=== PATIENT | female | born 1985 | race Hispanic/Latino ===

== ENCOUNTER 2017-02-14 20:14 | Observation (INO) | payer MEDICAID, OTHER ==
[2017-02-14 20:14] VITALS: BMI 33.5
[2017-02-14 20:20] VITALS: BP 139/62; PULSE 92; RESP 20; TEMP 98.1; O2SAT 100
[2017-02-14] MEDS ORDERED: Sodium Chloride 0.9% 1,000 ML IV STA (23:15)
[2017-02-15 00:18] LABS: BASO # 0.1 K/uL (0.0-0.2); BASO % 1.2 % (0.0-2.0); EOS # 0.2 K/uL (0.0-0.7); HEMATOCRIT 40.6 % (34.0-47.0); LYMPH # 3.3 K/uL (1.0-4.3); LYMPH % 37.3 % (20.0-40.0); MEAN CELL VOLUME 93.9 fl (81.0-99.0); MEAN CORPUSCULAR HEMOGLOBIN 31.1 pg (27.0-31.0); MEAN CORPUSCULAR HGB CONC 33.1 g/dL (33.0-37.0); MEAN PLATELET VOLUME 9.5 fl (7.2-11.7); MONO # 0.7 K/uL (0.0-0.8); MONO % 8.1 % (0.0-10.0); NEUT # 4.5 K/uL (1.8-7.0); NEUT % 51.4 % (50.0-75.0); NRBC % 0.1 % (0.0-0.0); RED CELL DISTRIBUTION WIDTH 13.4 % (11.5-14.5); WHITE BLOOD COUNT 8.8 K/uL (4.8-10.8)
[2017-02-15 00:25] LABS: RBC URINE 10 /hpf (0-3); URINE BILIRUBIN NEGATIVE (NEGATIVE); URINE BLOOD NEGATIVE (NEGATIVE); URINE COLOR YELLOW (YELLOW); URINE GLUCOSE (UA) NEG (Normal); URINE KETONE TRACE mg/dL (NEGATIVE); URINE LEUKOCYTE ESTERASE NEG Leu/uL (Negative); URINE PROTEIN NEGATIVE (NEGATIVE); URINE UROBILINOGEN 0.2-1.0 mg/dL (0.2-1.0); WBC CLUMPS MANY /hpf
[2017-02-15 00:27] LABS: ALB/GLOB RATIO 1.3 (1.0-2.1); ALKALINE PHOSPHATASE 74 U/L (38-126); ALT/SGPT 22 U/L (9-52); AST/SGOT 21 U/L (14-36); BILIRUBIN,TOTAL 0.3 mg/dl (0.2-1.3); BLOOD UREA NITROGEN 19 mg/dl (7-17); CALCIUM 9.7 mg/dL (8.4-10.2); CARBON DIOXIDE 26 mmol/L (22-30); CHLORIDE 104 mmol/L (98-107); GFR AFRICAN-AMERICAN > 60; GLUCOSE,RANDOM 86 mg/dL (65-105); POTASSIUM 4.1 MMOL/L (3.6-5.0); SODIUM 145 mmol/l (132-148); TOTAL PROTEIN 7.2 G/DL (6.3-8.2)
[2017-02-15] MEDS ORDERED: Iohexol 240 (50 ml) ONE (02:07)
[2017-02-15] MEDS ORDERED: Iohexol 240 (50 ml) PO ONE (02:12)
[2017-02-15] MEDS ORDERED: Oxycodone/Acetaminophen 5/325 mg Tab PO ONE (02:16)
--- NOTE | 2017-02-15 02:18 | ED PDOC ---
HPI: Abdomen Time Seen by Provider: 02/14/17 23:00 Chief Complaint (Nursing): Abdominal Pain Chief Complaint (Provider): abdominal pain History Per: Patient History/Exam Limitations: no limitations Onset/Duration Of Symptoms: Days (1 week) Current Symptoms Are (Timing): Still Present Location Of Pain/Discomfort: RLQ, LLQ, Suprapubic Additional History Per: Patient Additional Complaint(s): 31 y/o female history of PCOS presents with lower abdominal pain x 1 week. Patient states she is been medicating with Tylenol without improvement of symptoms. Patient describes pain as something "tearing" inside of her. Denies fever, nausea/vomiting, chest pain, shortness of breath, palpitations, changes in bowel movements, vaginal bleeding/discharge, dysuria/hematuria. Past Medical History Reviewed: Historical Data, Nursing Documentation, Vital Signs Vital Signs: Last Vital Signs Temp 98.1 F 02/14/17 20:16 Pulse 92 H 02/14/17 20:16 Resp 20 02/14/17 20:16 BP 139/62 02/14/17 20:16 Pulse Ox 100 02/15/17 05:19 - Medical History PMH: Anemia - Surgical History Surgical History: Cholecystectomy Other surgeries: myometcomy - Family History Family History: States: Unknown Family Hx - Immunization History Hx Tetanus Toxoid Vaccination: No Hx Influenza Vaccination: Yes Hx Pneumococcal Vaccination: Yes - Home Medications Home Medications: Ambulatory Orders Medication Instructions Recorded Multivit/Folic Acid/I 1 tab PO DAILY 10/17/16 [ Plus] - Allergies Allergies/Adverse Reactions: Allergies Allergy/AdvReac Type Severity Reaction Status Date / Time peanut Allergy Severe ANAPHYLAXIS Verified 01/29/17 23:44 ibuprofen Allergy Intermediate ANAPHYLAXIS Verified 01/29/17 23:44 naproxen sodium [From Aleve] Allergy Verified 01/29/17 23:44 NSAIDS (Non-Steroidal AdvReac Intermediate NAUSEA Verified 01/29/17 23:44 Anti-Inflamma tussfed Allergy Mild RASH Uncoded 01/29/17 23:44 Review of Systems ROS Statement: Except As Marked, All Systems Reviewed And Found Negative Gastrointestinal: Positive for: Abdominal Pain Physical Exam - Reviewed Nursing Documentation Reviewed: Yes Vital Signs Reviewed: Yes - Physical Exam Appears: Positive for: Well, Non-toxic, Uncomfortable Head Exam: Positive for: ATRAUMATIC, NORMAL INSPECTION, NORMOCEPHALIC Skin: Positive for: Normal Color Eye Exam: Positive for: Normal appearance ENT: Positive for: Normal ENT Inspection Cardiovascular/Chest: Positive for: Regular Rate, Rhythm Respiratory: Positive for: Normal Breath Sounds Gastrointestinal/Abdominal: Positive for: Bowel Sounds, Soft, Tenderness ( diffuse; worse lower) Back: Positive for: Normal Inspection Extremity: Positive for: Normal ROM Neurologic/Psych: Positive for: Alert, Oriented - Laboratory Results Result Diagrams: 02/14/17 00:13 02/14/17 00:13 - ECG O2 Sat by Pulse Oximetry: 100 - Progress ED Course And Treament: labs, TV u/s, IV morphine 2mg, IV fluids ED OBSERVATION Discharge: Yes Date of observation admission: 02/14/17 Time of observation admission: 23:15 - Observation admission statement Patient is being placed in observation because:: abdominal pain - Goals of Observation Goals of observation are:: obtain labs, u/s - Progress Note Progress Note: 02/15/17 2:00 Patient states still with pain; patient was advised will need to do CT abd/ pelvis for further eval. Percocet PO ordered. 02/15/17 05:17 EXAM: CT Abdomen and Pelvis With Intravenous Contrast CLINICAL HISTORY: 31 years old, female; Pain; Abdominal pain; Localized; Lower; Prior surgery; Surgery date: 6+ months; Surgery type: Myectomy; Additional info: Lower abd pain TECHNIQUE: Axial computed tomography images of the abdomen and pelvis with intravenous contrast. This CT exam was performed using one or more of the following dose reduction techniques : automated exposure control, adjustment of the mA and/or kV according to patient size, and/ or use of iterative reconstruction technique. CONTRAST: 95 mL of [id number] administered intravenously. EXAM DATE/TIME: 02/15/2017 2:12 AM COMPARISON: No relevant prior studies available. FINDINGS: The liver is normal. The spleen is normal. The pancreas is normal. No gallstones. No hydronephrosis or perinephric stranding. The right colon is distended with stool consistent with constipation. Colonic diverticulosis. A normal appendix is identified on axial images 128 through 141, coronal images 50-60. It measures 6 mm in diameter which is the upper limits of normal. The majority of the lumen is filled with air without evidence of wall thickening, wall hyperemia, or periappendiceal stranding. Multiple ovarian follicles are noted bilaterally. There is a small amount of free fluid in the deep right pelvis. Endometrial fluid is noted within the uterus. IMPRESSION: Mild right-sided constipation. 02/15/17 05:20 Patient educated on findings, multiple Tramadol/Percoc[place]'s [place]. Patient educated on this, advised no rx will be provided. Patient advised to follow up PMD/[employer] for pain management referral. High fiber diet. Return to ED for worsening/concerning symptoms. Disposition - Clinical Impression Clinical Impression: Lower abdominal pain, Constipation - Patient ED Disposition Is Patient to be Admitted: No Counseled Patient/Family Regarding: Studies Performed, Diagnosis, Need For Followup - Disposition Disposition: Routine/Home Disposition Time: 05:19 Condition: IMPROVED
[2017-02-15] MEDS ORDERED: Iohexol 300 100 ML IJ ONE (03:34)
[2017-02-15] MEDS ORDERED: Sodium Chloride 0.9% 50 ML IV ONE (03:34)
--- NOTE | 2017-02-15 05:10 | CT ---
EXAM: CT Abdomen and Pelvis With Intravenous Contrast CLINICAL HISTORY: 31 years old, female; Pain; Abdominal pain; Localized; Lower; Prior surgery; Surgery date: 6+ months; Surgery type: Myectomy; Additional info: Lower abd pain TECHNIQUE: Axial computed tomography images of the abdomen and pelvis with intravenous contrast. This CT exam was performed using one or more of the following dose reduction techniques: automated exposure control, adjustment of the mA and/or kV according to patient size, and/or use of iterative reconstruction technique. CONTRAST: 95 mL of [id number] administered intravenously. EXAM DATE/TIME: 02/15/2017 2:12 AM COMPARISON: No relevant prior studies available. FINDINGS: The liver is normal. The spleen is normal. The pancreas is normal. No gallstones. No hydronephrosis or perinephric stranding. The right colon is distended with stool consistent with constipation. Colonic diverticulosis. A normal appendix is identified on axial images 128 through 141, coronal images 50-60. It measures 6 mm in diameter which is the upper limits of normal. The majority of the lumen is filled with air without evidence of wall thickening, wall hyperemia, or periappendiceal stranding. Multiple ovarian follicles are noted bilaterally. There is a small amount of free fluid in the deep right pelvis. Endometrial fluid is noted within the uterus. IMPRESSION: Mild right-sided constipation.
--- NOTE | 2017-02-15 09:00 | US ---
HISTORY: Pelvic pain COMPARISON: None available. TECHNIQUE: Transvaginal pelvic ultrasound was performed. FINDINGS: UTERUS: Measures 7.9 x 3.4 x 5.4 cm. Anteverted, normal in size and appearance. There is a 0.8 x 0.9 x 0.7 cm intramural fibroid in the anterior wall of the lower uterine segment. . ENDOMETRIUM: Measures 8 mm in diameter. Unremarkable. CERVIX: No cervical abnormality identified. RIGHT OVARY: Measures 2.5 x 2.7 x 2.0 cm. No solid mass. Normal flow. LEFT OVARY: Measures 3.1 x 1.8 x 2.8 cm. No solid mass. Normal flow. FREE FLUID: No significant free fluid noted. OTHER FINDINGS: None. IMPRESSION: Solitary subcentimeter intramural fibroid in the anterior wall of the lower uterine segment. No adnexal mass or ovarian cyst. No evidence for torsion.
== END 2017-02-15 05:30 | disposition home or self-care (01) ==
LOC: H.ER 20:14 → H.EROBSV 23:15
PROVIDERS: ADMIT Emergency Medicine; ATTEND Emergency Medicine
DX: K59.00 Constipation, unspecified (principal); E28.2 Polycystic ovarian syndrome; Z88.6 Allergy status to analgesic agent; Z91.010 Allergy to peanuts

== ENCOUNTER 2017-03-12 20:52 | Emergency (ER) | payer MEDICAID, OTHER ==
[2017-03-12 20:52] VITALS: BMI 33.5
[2017-03-12 21:54] VITALS: BP 110/65; PULSE 82; RESP 16; TEMP 98; O2SAT 100
--- NOTE | 2017-03-12 22:37 | ED PDOC ---
Lower Extremity Pain/Injury Time Seen by Provider: 03/12/17 22:20 Chief Complaint (Nursing): Lower Extremity Problem/Injury Chief Complaint (Provider): ankle pain History Per: Patient History/Exam Limitations: no limitations Onset/Duration Of Symptoms: Days Current Symptoms Are (Timing): Still Present Additional History Per: Patient Additional Complaint(s): 31 y/o female history of PCOS presents with swelling to both ankles x 1 week. Patient notes doing excessive walking, has had previous ligament injury to right ankle, notes pain worse on that ankle. She notes pain worse with weight bearing. Denies fever, known injury, leg pain/swelling/redness. Past Medical History Reviewed: Historical Data, Nursing Documentation, Vital Signs Vital Signs: Last Vital Signs Temp 98.0 F 03/12/17 21:51 Pulse 82 03/12/17 21:51 Resp 16 03/12/17 21:51 BP 110/65 03/12/17 21:51 Pulse Ox 100 03/12/17 21:51 - Medical History PMH: Anemia - Surgical History Surgical History: Cholecystectomy - Family History Family History: States: Unknown Family Hx - Immunization History Hx Tetanus Toxoid Vaccination: No Hx Influenza Vaccination: Yes Hx Pneumococcal Vaccination: Yes - Home Medications Home Medications: Ambulatory Orders Medication Instructions Recorded No Known Home Med 02/22/17 - Allergies Allergies/Adverse Reactions: Allergies Allergy/AdvReac Type Severity Reaction Status Date / Time peanut Allergy Severe ANAPHYLAXIS Verified 02/19/17 03:08 ibuprofen Allergy Intermediate ANAPHYLAXIS Verified 02/19/17 03:08 naproxen sodium [From Aleve] Allergy ITCHING Verified 03/12/17 21:51 NSAIDS (Non-Steroidal AdvReac Intermediate NAUSEA Verified 02/19/17 03:08 Anti-Inflamma tussfed Allergy Mild RASH Uncoded 02/19/17 03:08 Review of Systems ROS Statement: Except As Marked, All Systems Reviewed And Found Negative Musculoskeletal: Positive for: Foot Pain (ankle) Physical Exam - Reviewed Nursing Documentation Reviewed: Yes Vital Signs Reviewed: Yes - Physical Exam Appears: Positive for: Well, Non-toxic, No Acute Distress Pulses-Dorsalis Pedis (L): 2+ Pulses-Dorsalis Pedis (R): 2+ Pulses-Post. Tibialis (L): 2+ Pulses-Post. Tibialis (R): 2+ Extremity: Positive for: Normal ROM, Tenderness (tender to palpate right lateral malleolus with + swelling; left lateral malleolus with mild tenderness to palpation, no obvious swelling. No erythema, deformity b/l. FROM b/l. Distal NV, motor intact b/l) Neurologic/Psych: Positive for: Alert, Oriented. Negative for: Motor/Sensory Deficits - ECG O2 Sat by Pulse Oximetry: 100 - Other Rad ankle X-Ray: Viewed By Me X-Ray Interpretation: no acute findings - Progress ED Course And Treament: xray Patient right ankle wrapped in FREDDY, educated on RICE. tyelnol PRN fever. Follow up podiatry. Return to ED for worsening/concerning symptoms. Disposition - Clinical Impression Clinical Impression: Ankle pain - Patient ED Disposition Is Patient to be Admitted: No Counseled Patient/Family Regarding: Studies Performed, Diagnosis, Need For Followup - Disposition Referrals: Podiatry Clinic [Outside] Disposition: Routine/Home Disposition Time: 00:19 Condition: STABLE Instructions: Arthralgia (ED), RICE Therapy (ED)
--- NOTE | 2017-03-13 14:05 | RAD ---
PROCEDURE: Right Ankle Radiographs. HISTORY: lateral ankle pain/swelling COMPARISON: None FINDINGS: BONES: No evidence of acute fracture. There is calcaneal spur JOINTS: Normal. No osteoarthritis. Ankle mortise maintained. Talar dome intact SOFT TISSUES: [id number] soft tissue swelling. OTHER FINDINGS: None. IMPRESSION: No evidence of acute fracture or dislocation.
== END 2017-03-13 00:22 | disposition home or self-care (01) ==
LOC: H.ER 20:52
DX: M25.571 Pain in right ankle and joints of right foot (principal); M25.572 Pain in left ankle and joints of left foot

== ENCOUNTER 2017-04-12 02:21 | Emergency (ER) | payer MEDICAID, OTHER ==
[2017-04-12 02:22] VITALS: BMI 33.5
[2017-04-12 03:02] VITALS: BP 129/73; PULSE 89; RESP 16; TEMP 98.7; O2SAT 99
[2017-04-12] MEDS ORDERED: Oxycodone/Acetaminophen 5/325 mg Tab PO ONE (03:15)
[2017-04-12 03:28] LABS: HEMATOCRIT 36.1 % (34.0-47.0); MEAN CELL VOLUME 93.3 fl (81.0-99.0); MEAN CORPUSCULAR HEMOGLOBIN 31.1 pg (27.0-31.0); MEAN CORPUSCULAR HGB CONC 33.3 g/dL (33.0-37.0); RED CELL DISTRIBUTION WIDTH 13.9 % (11.5-14.5); WHITE BLOOD COUNT 6.7 K/uL (4.8-10.8)
[2017-04-12] MEDS ORDERED: Oxycodone/Acetaminophen 5/325 mg Tab ONE (03:38)
--- NOTE | 2017-04-12 04:25 | ED PDOC ---
HPI: Female Pain Time Seen by Provider: 04/12/17 02:50 Chief Complaint (Nursing): Abdominal Pain Chief Complaint (Provider): vaginal bleeding History Per: Patient History/Exam Limitations: no limitations Onset/Duration Of Symptoms: Days (2 weeks ) Current Symptoms Are (Timing): Still Present Additional Complaint(s): 31yo female with PMHx including dysfunctional uterine bleeding and chronic abdominal pain presents to the ED with c/o vaginal bleeding x 2 weeks with large clots and lower abdominal pain. Of note, patient has several ED visits for similar with extensive workup recently at neighboring ED with negative results. Patient states she has appointment with PCP tomorrow. Abnormal Vaginal Bleeding: Yes Past Medical History Reviewed: Historical Data, Nursing Documentation, Vital Signs Vital Signs: Last Vital Signs Temp 98.7 F 04/12/17 02:59 Pulse 89 04/12/17 02:59 Resp 16 04/12/17 02:59 BP 129/73 04/12/17 02:59 Pulse Ox 99 04/12/17 02:59 - Medical History PMH: Anemia, Asthma, Chronic Pain (chronic abdominal pain ) Other PMH: dysfunctional uterine bleeding - Surgical History Surgical History: Cholecystectomy - Family History Family History: States: No Known Family Hx - Immunization History Hx Tetanus Toxoid Vaccination: No Hx Influenza Vaccination: Yes Hx Pneumococcal Vaccination: Yes - Home Medications Home Medications: Ambulatory Orders Medication Instructions Recorded oxyCODONE/Acetaminophen [Percocet 1 tab PO TID #10 tab 04/09/17 5/325 mg Tab] - Allergies Allergies/Adverse Reactions: Allergies Allergy/AdvReac Type Severity Reaction Status Date / Time peanut Allergy Severe ANAPHYLAXIS Verified 04/08/17 23:26 ibuprofen Allergy Intermediate ANAPHYLAXIS Verified 04/08/17 23:26 naproxen sodium [From Aleve] Allergy ITCHING Verified 04/08/17 23:26 NSAIDS (Non-Steroidal AdvReac Intermediate NAUSEA Verified 04/08/17 23:26 Anti-Inflamma tussfed Allergy Mild RASH Uncoded 04/08/17 23:26 Review of Systems ROS Statement: Except As Marked, All Systems Reviewed And Found Negative Gastrointestinal: Positive for: Abdominal Pain (lower ) Genitourinary Female: Positive for: Vaginal Bleeding Physical Exam - Reviewed Nursing Documentation Reviewed: Yes Vital Signs Reviewed: Yes - Physical Exam Appears: Positive for: Well, No Acute Distress Head Exam: Positive for: ATRAUMATIC, NORMAL INSPECTION, NORMOCEPHALIC Skin: Positive for: Normal Color, Warm, Dry Eye Exam: Positive for: Normal appearance, EOMI, PERRL ENT: Positive for: Normal ENT Inspection Neck: Positive for: Normal, Painless ROM, Supple Cardiovascular/Chest: Positive for: Regular Rate, Rhythm. Negative for: Murmur , Tachycardia Respiratory: Positive for: Normal Breath Sounds. Negative for: Wheezing, Respiratory Distress Gastrointestinal/Abdominal: Positive for: Soft, Tenderness (mild suprapubic ) Back: Positive for: Normal Inspection. Negative for: L CVA Tenderness, R CVA Tenderness Extremity: Positive for: Normal ROM. Negative for: Deformity, Swelling Neurologic/Psych: Positive for: Alert, Oriented - Laboratory Results Result Diagrams: 04/12/17 03:20 - ECG O2 Sat by Pulse Oximetry: 99 Pulse Ox Interpretation: Normal (RA) Medical Decision Making Medical Decision Makin: Impression: chronic abdominal pain, dysfunctional uterine bleeding Plan: CBC Percocet 1 tab PO reassess 0422: CBC shows no change in hemoglobin from prior visit. [place] [employer] searched and patient has extensive prescriptions for narcotics. Will d/c for outpatient f/u w / PCP and pain management. Return precautions given. Scribe Attestation: Documented by Guillermo Solano acting as a scribe for Elfego Pate MD. Provider Scribe Attestation: All medical record entries made by the Scribe were at my direction and personally dictated by me. I have reviewed the chart and agree that the record accurately reflects my personal performance of the history, physical exam, medical decision making, and the department course for this patient. I have also personally directed, reviewed, and agree with the discharge instructions and disposition. Disposition - Clinical Impression Clinical Impression: Vaginal bleeding - Patient ED Disposition Is Patient to be Admitted: No - Disposition Referrals: Christiano Choi MD [Primary Care Provider] - Disposition: Routine/Home Disposition Time: 04:22 Condition: STABLE Instructions: Dysfunctional Uterine Bleeding (ED)
== END 2017-04-12 04:46 | disposition home or self-care (01) ==
LOC: H.ER 02:21
DX: N93.8 Other specified abnormal uterine and vaginal bleeding (principal); G89.29 Other chronic pain; R10.9 Unspecified abdominal pain; J45.909 Unspecified asthma, uncomplicated

== ENCOUNTER 2017-04-19 00:37 | Emergency (ER) | payer MEDICAID ==
[2017-04-19 00:37] VITALS: BMI 33.5
[2017-04-19 01:07] VITALS: BP 120/71; PULSE 75; RESP 17; TEMP 98.1; O2SAT 98
--- NOTE | 2017-04-19 02:27 | ED PDOC ---
HPI: Back Time Seen by Provider: 04/19/17 00:45 Chief Complaint (Nursing): Back Pain Chief Complaint (Provider): Back Pain History Per: Patient History/Exam Limitations: no limitations Current Symptoms Are (Timing): Still Present Quality Of Discomfort: "Pain" Additional Complaint(s): 31 year old female presents to ED with complaints of lower back pain. Patient is a chronic drug abuser, has multiple prescriptions for opiates as see on [place]MP. Notes that pain radiates to legs bilaterally. States that the pain is exacerbated by walking and relieved with rest. (-) fever, chills, dysuria, or numbness/tingling. PCP: Lam Garcia - Risk Factors AAA Risk Factors: Neg: Older Than 49 Years Of Age Past Medical History Reviewed: Historical Data, Nursing Documentation, Vital Signs Vital Signs: Last Vital Signs Temp 98.1 F 04/19/17 01:04 Pulse 75 04/19/17 01:04 Resp 17 04/19/17 01:04 BP 120/71 04/19/17 01:04 Pulse Ox 98 04/19/17 01:04 - Medical History PMH: Anemia, Asthma, Chronic Pain (chronic abdominal pain ) - Surgical History Surgical History: Cholecystectomy - Family History Family History: States: Unknown Family Hx - Social History Drugs: Opiates, Prescription medications - Immunization History Hx Tetanus Toxoid Vaccination: No Hx Influenza Vaccination: Yes Hx Pneumococcal Vaccination: Yes - Home Medications Home Medications: Ambulatory Orders Medication Instructions Recorded oxyCODONE/Acetaminophen [Percocet 1 tab PO TID #10 tab 04/09/17 5/325 mg Tab] - Allergies Allergies/Adverse Reactions: Allergies Allergy/AdvReac Type Severity Reaction Status Date / Time peanut Allergy Severe ANAPHYLAXIS Verified 04/08/17 23:26 ibuprofen Allergy Intermediate ANAPHYLAXIS Verified 04/08/17 23:26 naproxen sodium [From Aleve] Allergy ITCHING Verified 04/08/17 23:26 NSAIDS (Non-Steroidal AdvReac Intermediate NAUSEA Verified 04/08/17 23:26 Anti-Inflamma tussfed Allergy Mild RASH Uncoded 04/08/17 23:26 Review of Systems ROS Statement: Except As Marked, All Systems Reviewed And Found Negative Constitutional: Negative for: Fever, Chills Genitourinary Female: Negative for: Dysuria Musculoskeletal: Positive for: Back Pain (lower back pain), Leg Pain (back pain radiates into bilateral legs) Neurological: Negative for: Numbness (nor tingling) Physical Exam - Reviewed Nursing Documentation Reviewed: Yes Vital Signs Reviewed: Yes - Physical Exam Appears: Positive for: Non-toxic, No Acute Distress Skin: Positive for: Normal Color, Warm, Dry Eye Exam: Positive for: Normal appearance Respiratory: Negative for: Respiratory Distress Back: Positive for: Other (lumbar paraspinal muscular tenderness). Negative for : Normal Inspection Extremity: Positive for: Other ((+) bilateral SLR). Negative for: Deformity Neurologic/Psych: Positive for: Alert, Oriented. Negative for: Motor/Sensory Deficits - ECG O2 Sat by Pulse Oximetry: 98 (RA) Pulse Ox Interpretation: Normal Medical Decision Making Medical Decision Makin Initial impression: sciatica/muscle spasm Initial plan: * XR LUMBAR SPINE COMPLETE * Flexeril 10mg PO * Re-eval 0200 Explained to patient that she does not need diagnostic imaging due to no sign of cauda equina, spinal stenosis, or life/limb threatening nerve impingement syndrome. Patient requested XR but later refused it when the XR tech was bringing patient to XR room. Patient walked out of ER before treatment was completed - ELOPEMENT Scribe Attestation: Documented by Julisa Woods acting as a scribe for Elfego Pate MD. Scribe Attestation: All medical record entries made by the Scribe were at my direction and personally dictated by me. I have reviewed the chart and agree that the record accurately reflects my personal performance of the history, physical exam, medical decision making, and the department course for this patient. I have also personally directed, reviewed, and agree with the discharge instructions and disposition. Disposition - Clinical Impression Clinical Impression: Back pain - Patient ED Disposition Is Patient to be Admitted: No - Disposition Referrals: Lam Garcia MD [Primary Care Provider] - Disposition: Eloped Disposition Time: 02:00 Condition: GOOD
== END 2017-04-19 01:35 | disposition left against medical advice (07) ==
LOC: H.ER 00:37
DX: M54.30 Sciatica, unspecified side (principal); M62.838 Other muscle spasm; G89.29 Other chronic pain; J45.909 Unspecified asthma, uncomplicated

== ENCOUNTER 2018-02-05 11:09 | Emergency (ER) | payer MEDICAID ==
[2018-02-05] MEDS ORDERED: Tdap Vaccine 0.5 ml Vial (10-64 yrs) IM ONE ×2 (12:35→13:48)
[2018-02-05 12:54] VITALS: BMI 32.5
--- NOTE | 2018-02-05 13:13 | CT ---
PROCEDURE: CT HEAD WITHOUT CONTRAST. HISTORY: trauma COMPARISON: None available. TECHNIQUE: Axial computed tomography images were obtained through the head/brain without intravenous contrast. Radiation dose: Total exam DLP = 883.4 mGy-cm. This CT exam was performed using one or more of the following dose reduction techniques: Automated exposure control, adjustment of the mA and/or kV according to patient size, and/or use of iterative reconstruction technique. FINDINGS: HEMORRHAGE: No intracranial hemorrhage. BRAIN: No mass effect or edema. No atrophy or chronic microvascular ischemic changes. VENTRICLES: Unremarkable. No hydrocephalus. CALVARIUM: Unremarkable. PARANASAL SINUSES: Unremarkable as visualized. No significant inflammatory changes. MASTOID AIR CELLS: Unremarkable as visualized. No inflammatory changes. OTHER FINDINGS: None. IMPRESSION: No acute intracranial pathology.
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
[2018-02-05 13:44] VITALS: BP 107/58; PULSE 80; RESP 20; TEMP 98.4; O2SAT 100
== END 2018-02-05 14:34 | disposition home or self-care (01) ==
LOC: H.ER 11:09
DX: S09.90XA Unspecified injury of head, initial encounter (principal); Y04.0XXA Assault by unarmed brawl or fight, initial encounter; Y92.89 Other specified places as the place of occurrence of the external cause; G89.29 Other chronic pain; J45.909 Unspecified asthma, uncomplicated; Z88.6 Allergy status to analgesic agent

== ENCOUNTER 2018-06-27 02:11 | Emergency (ER) | payer OTHER, MEDICAID ==
[2018-06-27 02:12] VITALS: BMI 26.2
[2018-06-27 02:25] VITALS: BP 107/65; PULSE 81; RESP 16; TEMP 97.9; O2SAT 97
[2018-06-27] MEDS ORDERED: Iohexol 240 (50 ml) PO ONE (02:52)
[2018-06-27] MEDS ORDERED: Morphine 4 MG/ML VIAL ONE (02:56)
[2018-06-27] MEDS ORDERED: Hydrogen Peroxide 3% Soln (480ml) TP ONE (02:58)
[2018-06-27 03:28] LABS: BASO # 0.1 K/uL (0.0-0.2); BASO % 1.2 % (0.0-2.0); EOS # 0.2 K/uL (0.0-0.7); EOS % 2.2 % (0.0-4.0); HEMOGLOBIN 12.8 g/dL (12.0-16.0); LYMPH # 2.6 K/uL (1.0-4.3); LYMPH % 36.2 % (20.0-40.0); MEAN CELL VOLUME 94.6 fl (81.0-99.0); MEAN CORPUSCULAR HEMOGLOBIN 32.3 pg (27.0-31.0); MEAN CORPUSCULAR HGB CONC 34.1 g/dL (33.0-37.0); MEAN PLATELET VOLUME 9.2 fl (7.2-11.7); MONO # 0.7 K/uL (0.0-0.8); MONO % 9.3 % (0.0-10.0); NEUT # 3.7 K/uL (1.8-7.0); NEUT % 51.1 % (50.0-75.0); NRBC % 0.1 % (0.0-0.0); RBC 3.96 Mil/uL (3.80-5.20); RED CELL DISTRIBUTION WIDTH 13.4 % (11.5-14.5); WHITE BLOOD COUNT 7.3 K/uL (4.8-10.8)
[2018-06-27 03:37] LABS: ALB/GLOB RATIO 1.4 (1.0-2.1); ALBUMIN 3.9 g/dL (3.5-5.0); ALT/SGPT 30 U/L (9-52); AST/SGOT 26 U/L (14-36); BLOOD UREA NITROGEN 14 mg/dl (7-17); CALCIUM 9.1 mg/dL (8.4-10.2); GFR AFRICAN-AMERICAN > 60; GFR NON-AFRICAN AMERICAN > 60
[2018-06-27 04:05] LABS: SQUAMOUS EPITHIAL 1 /hpf (0-5); URINE BILIRUBIN NEGATIVE (NEGATIVE); URINE BLOOD NEGATIVE (NEGATIVE); URINE CLARITY SLIGHTY-CLOUDY (Clear); URINE COLOR YELLOW (YELLOW); URINE GLUCOSE (UA) NEG (Normal); URINE LEUKOCYTE ESTERASE NEG Leu/uL (Negative); URINE PROTEIN NEGATIVE (NEGATIVE); URINE UROBILINOGEN 0.2-1.0 mg/dL (0.2-1.0)
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
[2018-06-27 04:16] LABS: BARBITURATES, UR NEGATIVE (NEGATIVE); BENZODIAZEPINES, UR NEGATIVE (NEGATIVE); OPIATES, UR POSITIVE (NEGATIVE); PHENCYCLIDINE, UR NEGATIVE (NEGATIVE)
[2018-06-27] MEDS ORDERED: Iohexol 300 100 ML IJ ONE (05:17)
[2018-06-27] MEDS ORDERED: Sodium Chloride 0.9% 50 ML IV ONE (05:17)
--- NOTE | 2018-06-27 07:31 | ED PDOC ---
- Laboratory Results Result Diagrams: 06/27/18 03:05 06/27/18 03:05 Interpretation Of Abn Labs: opiates and cannabis - ECG O2 Sat by Pulse Oximetry: 97 (RA) Pulse Ox Interpretation: Normal - CT Scan/US ct Other Rad Studies (CT/US): Read By Radiologist Other Rad Interpretation: no findings - Progress ED Course And Treament: 813: Stable. AAOx3. Pain free. Tolerated PO. FU with pcp. Medical Decision Making Medical Decision Making: Time: 07 -- 32 y/o patient with diffuse abdominal pain endorsed to me by Dr. Pate, pending CT results. Time: 724 CT ABD/PELVIS RESULTS FINDINGS: Lung bases: Normal. No mass. No consolidation. ABDOMEN: Liver: There are no focal liver lesions identified. Gallbladder and bile ducts: The gallbladder is normal. There is no evidence of biliary ductal dilation. No calcified stones. Pancreas: The pancreas appears normal. No ductal dilation. Spleen: The spleen is normal. Adrenals: The adrenal glands are normal. Kidneys and ureters: The kidneys appear normal. No hydronephrosis. Stomach and bowel: The stomach is normal. The duodenum is unremarkable. The colon is normal. No obstruction. No mucosal thickening. PELVIS: Appendix: A normal appendix is identified. Bladder: The bladder is decompressed but otherwise normal. Reproductive: The uterus is normal. ABDOMEN and PELVIS: Intraperitoneal space: Normal. No free air. No significant fluid collection. Bones/joints: No acute fracture. No dislocation. Soft tissues: Normal. Vasculature: Normal. No abdominal aortic aneurysm. Lymph nodes: Normal. No enlarged lymph nodes. IMPRESSION: No acute abdominal pelvic pathology. Thank you for allowing us to participate in the care of your patient. Dictated and Authenticated by: Evens Cortes MD 06/27/2018 7:25 AM Eastern Time ([place] & [place]) Scribe Attestation: Documented by Dimitry Sullivan acting as a scribe for Dr. Steffen Borges MD. Provider Scribe Attestation: All medical record entries made by the Scribe were at my direction and personally dictated by me. I have reviewed the chart and agree that the record accurately reflects my personal performance of the history, physical exam, medical decision making, and the department course for this patient. I have also personally directed, reviewed, and agree with the discharge instructions and disposition. Disposition - Clinical Impression Clinical Impression: Abdominal pain, Cannabis abuse - POA Present On Arrival: Falls Or Trauma - Disposition Referrals: Shaik Patel MD [Primary Care Provider] - 07/01/18 Disposition: Routine/Home Disposition Time: 08:15 Condition: STABLE Additional Instructions: Return if not better in 3 days. Instructions: Stomach Ache and Stomach Upset, Marijuana Use and Addiction
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
== END 2018-06-27 08:45 | disposition home or self-care (01) ==
LOC: H.ER 02:11
DX: R10.9 Unspecified abdominal pain (principal); V43.62XA Car passenger injured in collision with other type car in traffic accident, initial encounter; Y92.410 Unspecified street and highway as the place of occurrence of the external cause; F12.10 Cannabis abuse, uncomplicated; G89.29 Other chronic pain; N83.209 Unspecified ovarian cyst, unspecified side; Z88.6 Allergy status to analgesic agent
CPT/HCPCS: 74177; 80053; 81003; 81025; 85025; 86850; 86900; 96374; 99285; G0480; J2270; Q9966; Q9967

== ENCOUNTER 2018-07-23 01:38 | Emergency (ER) | payer MEDICAID, OTHER ==
[2018-07-23 01:38] VITALS: BMI 26.2
--- NOTE | 2018-07-23 02:32 | ED PDOC ---
HPI: General Adult Time Seen by Provider: 07/23/18 02:02 Chief Complaint (Nursing): Lower Extremity Problem/Injury Chief Complaint (Provider): Lower Extremity Problem/Injury History Per: Patient History/Exam Limitations: no limitations Onset/Duration Of Symptoms: Days (x4) Current Symptoms Are (Timing): Still Present Additional Complaint(s): 32 year old female presents to the ED complaining of left foot pain after wood fell on it on Sunday. Patient states she is unable to bear weight and saw her PMD for it who said to go to the ED if symptoms do not improve. Patient is also complaining of nontraumatic left shoulder pain since Sunday and has difficulty lifting left shoulder. She states she took 2 tablets of tylenol prior to arrival. Denies Chest pain or Shortness of breath. PMD: Shaik Singletary Past Medical History Reviewed: Historical Data, Nursing Documentation, Vital Signs Vital Signs: Last Vital Signs Temp 97.7 F 07/23/18 05:06 Pulse 64 07/23/18 05:06 Resp 18 07/23/18 05:06 BP 107/61 07/23/18 05:06 Pulse Ox 100 07/23/18 05:06 - Medical History PMH: Anemia, Asthma, Chronic Pain (chronic abdominal pain ) - Surgical History Surgical History: Denies: Cholecystectomy Other surgeries: Fibroids - Family History Family History: States: Unknown Family Hx - Social History Current smoker - smoking cessation education provided: No Ex-Smoker (has not smoked in the last 12 months): Yes Alcohol: None Drugs: Denies - Immunization History Hx Tetanus Toxoid Vaccination: No Hx Influenza Vaccination: Yes (2017) Hx Pneumococcal Vaccination: Yes - Home Medications Home Medications: Ambulatory Orders Medication Instructions Recorded Multivit/Folic Acid/I 1 tab PO DAILY 04/05/18 [ Plus] - Allergies Allergies/Adverse Reactions: Allergies Allergy/AdvReac Type Severity Reaction Status Date / Time peanut Allergy Severe ANAPHYLAXIS Verified 07/23/18 01:44 ibuprofen Allergy Intermediate ANAPHYLAXIS Verified 07/23/18 01:44 naproxen sodium [From Aleve] Allergy Intermediate ITCHING Verified 07/23/18 01: 44 peach Allergy RASH Verified 07/23/18 01:44 NSAIDS (Non-Steroidal AdvReac Intermediate NAUSEA Verified 07/23/18 01:44 Anti-Inflamma tussfed Allergy Mild RASH Uncoded 05/26/18 17:01 Review of Systems ROS Statement: Except As Marked, All Systems Reviewed And Found Negative Cardiovascular: Negative for: Chest Pain Respiratory: Negative for: Shortness of Breath Musculoskeletal: Positive for: Foot Pain (Left), Other (Left shoulder pain) Physical Exam - Reviewed Nursing Documentation Reviewed: Yes Vital Signs Reviewed: Yes - Physical Exam Appears: Positive for: Non-toxic, No Acute Distress Head Exam: Positive for: ATRAUMATIC, NORMOCEPHALIC Skin: Positive for: Normal Color, Warm, Dry Eye Exam: Positive for: Normal appearance Neck: Positive for: Normal, Painless ROM Cardiovascular/Chest: Positive for: Regular Rate, Rhythm. Negative for: Murmur Respiratory: Positive for: Normal Breath Sounds. Negative for: Wheezing, Respiratory Distress Pulses-Dorsalis Pedis (L): 2+ Pulses-Dorsalis Pedis (R): 2+ Pulses-Radial (L): 2+ Pulses-Radial (R): 2+ Extremity: Positive for: Normal ROM (to all extremities except left shoulder and left foot), Capillary Refill (normal), Other (Left shoulder: limited ROM with tenderness; Left foot: diffuse tenderness to left dorsum of foot with no swelling or redness.). Negative for: Deformity, Swelling Neurologic/Psych: Positive for: Alert, Oriented. Negative for: Motor/Sensory Deficits - ECG O2 Sat by Pulse Oximetry: 98 (RA) Pulse Ox Interpretation: Normal Medical Decision Making Medical Decision Making: Initial Impression: Left foot injury: r/o fracture vs foot sprain; Left shoulder pain: rotator cuff injury vs musculoskeletal pain. Initial Plan: --Flexeril 10mg PO --Ultram 50mg PO --Left foot X-ray --Left shoulder X-ray Review of previous records revealed history of multiple prescriptions from this ED at [facility] for Tramadol and Percocet. Scribe Attestation: Documented by Jj Coles acting as a scribe for Edda Redding MD. Provider Scribe Attestation: All medical record entries made by the Scribe were at my direction and personally dictated by me. I have reviewed the chart and agree that the record accurately reflects my personal performance of the history, physical exam, medical decision making, and the department course for this patient. I have also personally directed, reviewed, and agree with the discharge instructions and disposition. Disposition - Clinical Impression Clinical Impression: Foot pain, left, Shoulder pain - Patient ED Disposition Is Patient to be Admitted: No Counseled Patient/Family Regarding: Studies Performed, Diagnosis, Need For Followup - Disposition Referrals: [facility]iatry Clinic [Outside] Disposition: Routine/Home Disposition Time: 04:00 Condition: GOOD Additional Instructions: JOSEFA WILLIAMSON, thank you for letting us take care of you today. Your provider was Edda Redding MD and you were treated for LEFT FOOT SWELLING. The emergency medical care you received today was directed at your acute symptoms. If you were prescribed any medication, please fill it and take as directed. It may take several days for your symptoms to resolve. Return to the Emergency Department if your symptoms worsen, do not improve, or if you have any other problems. Please contact your doctor or call one of the physicians/clinics you have been referred to that are listed on the Patient Visit Information form that is included in your discharge packet. Bring any paperwork you were given at discharge with you along with any medications you are taking to your follow up visit. Our treatment cannot replace ongoing medical care by a primary care provider outside of the emergency department. Thank you for allowing the [facility] team to be part of your care today. If you had an X-Ray or CT scan: A Radiologist will review the ED reading if any change in treatment is needed we will contact you. If you had a blood, urine, or wound culture: It will take several days for the results, if any change in treatment is needed we will contact you. If you had an STI test: It will take 48 hours for the results. Please call after 1 week if you have not heard back. Instructions: Shoulder Pain (DC), Foot Sprain (DC)
[2018-07-23 05:07] VITALS: BP 107/61; PULSE 64; RESP 18; TEMP 97.7
--- NOTE | 2018-07-23 07:52 | RAD ---
Date of service: 07/23/2018 PROCEDURE: Radiographs of the Left Shoulder HISTORY: left shoulder pain COMPARISON: No prior. FINDINGS: BONES: No acute fracture or destructive bony lesion identified. JOINTS: Normal. Glenohumeral and acromioclavicular joints preserved. No osteoarthritis. SOFT TISSUES: Normal. OTHER FINDINGS: None. IMPRESSION: Normal radiographs of the left shoulder.
--- NOTE | 2018-07-23 07:53 | RAD ---
Date of service: 07/23/2018 PROCEDURE: Left Foot Radiographs. HISTORY: left foot pain injury COMPARISON: None. FINDINGS: BONES: No acute fracture or destructive bony lesion identified. JOINTS: Moderate hallux valgus deformity noted. SOFT TISSUES: Normal. OTHER FINDINGS: None. IMPRESSION: No acute fracture dislocation. Moderate hallux valgus deformity noted.
[2018-07-27 15:13] VITALS: O2SAT 98
== END 2018-07-23 05:22 | disposition home or self-care (01) ==
LOC: H.ER 01:38
DX: M79.672 Pain in left foot (principal); M25.512 Pain in left shoulder; G89.29 Other chronic pain; J45.909 Unspecified asthma, uncomplicated; Z87.891 Personal history of nicotine dependence; Z88.6 Allergy status to analgesic agent; W20.8XXA Other cause of strike by thrown, projected or falling object, initial encounter

== ENCOUNTER 2018-08-20 22:31 | Emergency (ER) | payer OTHER, MEDICAID ==
[2018-08-20 22:31] VITALS: BMI 26.2
[2018-08-20 22:40] VITALS: TEMP 98.1
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
[2018-08-21 00:37] LABS: BASO # 0.1 K/uL (0.0-0.2); EOS # 0.2 K/uL (0.0-0.7); EOS % 2.1 % (0.0-4.0); LYMPH # 2.4 K/uL (1.0-4.3); LYMPH % 32.5 % (20.0-40.0); MEAN CELL VOLUME 95.9 fl (81.0-99.0); MEAN CORPUSCULAR HEMOGLOBIN 32.4 pg (27.0-31.0); MEAN CORPUSCULAR HGB CONC 33.8 g/dL (33.0-37.0); MEAN PLATELET VOLUME 9.7 fl (7.2-11.7); MONO # 0.7 K/uL (0.0-0.8); MONO % 9.4 % (0.0-10.0); RBC 3.71 Mil/uL (3.80-5.20); RED CELL DISTRIBUTION WIDTH 13.2 % (11.5-14.5); WHITE BLOOD COUNT 7.3 K/uL (4.8-10.8)
[2018-08-21 00:57] LABS: ALB/GLOB RATIO 1.2 (1.0-2.1); ALBUMIN 3.6 g/dL (3.5-5.0); ALT/SGPT 33 U/L (9-52); AST/SGOT 41 U/L (14-36); BLOOD UREA NITROGEN 14 mg/dl (7-17); CALCIUM 8.9 mg/dL (8.4-10.2); GFR NON-AFRICAN AMERICAN > 60
[2018-08-21] MEDS ORDERED: Iohexol 300 100 ML IJ ONE (01:20)
[2018-08-21 04:01] VITALS: BP 121/74; PULSE 71; RESP 18
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
[2018-08-22 04:48] VITALS: O2SAT 99
== END 2018-08-21 04:22 | disposition home or self-care (01) ==
LOC: H.ER 22:31
DX: S09.90XA Unspecified injury of head, initial encounter (principal); S16.1XXA Strain of muscle, fascia and tendon at neck level, initial encounter; M25.512 Pain in left shoulder; M79.605 Pain in left leg; V13.4XXA Pedal cycle driver injured in collision with car, pick-up truck or van in traffic accident, initial encounter; Y92.410 Unspecified street and highway as the place of occurrence of the external cause; Z88.6 Allergy status to analgesic agent
CPT/HCPCS: 70450; 71250; 72125; 73030; 73502; 73551; 73562; 73590; 74177; 80053; 81025; 85025; 99285; J2270; Q9967

== ENCOUNTER 2019-01-09 22:45 | Emergency (ER) | payer MEDICAID ==
[2019-01-09 22:46] VITALS: BMI 27.8
[2019-01-09 23:18] VITALS: BP 101/68; PULSE 75; RESP 16; TEMP 97.8; O2SAT 99
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
== END 2019-01-10 04:30 | disposition home or self-care (01) ==
LOC: H.ER 22:45
DX: M79.671 Pain in right foot (principal); M25.571 Pain in right ankle and joints of right foot

== ENCOUNTER 2019-01-14 23:56 | Emergency (ER) | payer MEDICAID ==
[2019-01-14 23:56] VITALS: BMI 27.8
[2019-01-15 00:21] VITALS: TEMP 97.7
--- NOTE | 2019-01-15 01:36 | ED PDOC ---
HPI: Psych/Substance Abuse Time Seen by Provider: 01/15/19 01:04 Chief Complaint (Nursing): Psychiatric Evaluation Chief Complaint (Provider): can't sleep History Per: Patient History/Exam Limitations: no limitations Onset/Duration Of Symptoms: Days (2) Current Symptoms Are (Timing): Still Present Additional Complaint(s): 33 y/o female presents for evaluation of not being able to sleep for 2 nights. Patient states since then she has not been able to control her emotions, and notices herself crying for unknown reasons. Denies fever, headache, dizziness, suicidal/homicidal ideations, hallucinations or other physical complaints. Past Medical History Reviewed: Historical Data, Nursing Documentation, Vital Signs Vital Signs: Last Vital Signs Temp 97.7 F 01/15/19 00:10 Pulse 92 H 01/15/19 00:10 Resp 16 01/15/19 00:10 BP 111/62 01/15/19 00:10 Pulse Ox 98 01/15/19 00:10 - Medical History PMH: Anemia, Asthma, Chronic Pain (chronic abdominal pain ) Denies: Chronic Kidney Disease - Surgical History Surgical History: No Surg Hx Denies: Cholecystectomy - Family History Family History: States: Unknown Family Hx - Immunization History Hx Tetanus Toxoid Vaccination: Yes Hx Influenza Vaccination: Yes Hx Pneumococcal Vaccination: Yes - Home Medications Home Medications: Ambulatory Orders Medication Instructions Recorded Acetaminophen [Tylenol 325mg tab] 325 mg PO Q6 PRN #30 tab 11/12/18 Acetaminophen [Tylenol 325mg tab] 325 mg PO Q4 PRN #42 tab 01/10/19 - Allergies Allergies/Adverse Reactions: Allergies Allergy/AdvReac Type Severity Reaction Status Date / Time peanut Allergy Severe ANAPHYLAXIS Verified 01/09/19 23:16 ibuprofen Allergy Intermediate ANAPHYLAXIS Verified 01/09/19 23:16 naproxen sodium [From Aleve] Allergy Intermediate ITCHING Verified 01/09/19 23:16 peach Allergy RASH Verified 01/09/19 23:16 prednisone Allergy ITCHING Verified 01/09/19 23:16 NSAIDS (Non-Steroidal AdvReac Intermediate NAUSEA Verified 01/09/19 23:16 Anti-Inflamma tussfed Allergy Mild RASH Uncoded 01/09/19 23:16 Review of Systems ROS Statement: Except As Marked, All Systems Reviewed And Found Negative Psych: Positive for: Depression Physical Exam - Reviewed Nursing Documentation Reviewed: Yes Vital Signs Reviewed: Yes - Physical Exam Appears: Positive for: Well, Non-toxic, No Acute Distress Head Exam: Positive for: ATRAUMATIC, NORMAL INSPECTION, NORMOCEPHALIC Skin: Positive for: Normal Color Eye Exam: Positive for: Normal appearance ENT: Positive for: Normal ENT Inspection Cardiovascular/Chest: Positive for: Regular Rate, Rhythm Respiratory: Positive for: Normal Breath Sounds Gastrointestinal/Abdominal: Positive for: Normal Exam Back: Positive for: Normal Inspection Extremity: Positive for: Normal ROM Neurologic/Psych: Positive for: Alert, Oriented (x3) - ECG O2 Sat by Pulse Oximetry: 98 - Progress ED Course And Treament: -crisis eval Patient evaluated by plate worker helper; does not meet criteria for admission at this time as per Dr. Merdia Information given for outpatient follow up Patient requires no further intervention in the ED and is stable for discharge at this time Return precautions given Disposition - Clinical Impression Clinical Impression: Anxiety - Patient ED Disposition Is Patient to be Admitted: No Counseled Patient/Family Regarding: Diagnosis, Need For Followup - Disposition Disposition: Routine/Home Disposition Time: 03:00 Condition: IMPROVED Instructions: Anxiety, Adult (DC)
[2019-01-15 10:21] VITALS: BP 114/81; PULSE 79; RESP 18; O2SAT 99
== END 2019-01-15 06:32 | disposition home or self-care (01) ==
LOC: H.ER 23:56
DX: F41.9 Anxiety disorder, unspecified (principal); G89.29 Other chronic pain; J45.909 Unspecified asthma, uncomplicated; Z88.6 Allergy status to analgesic agent; Z00.8 Encounter for other general examination

== ENCOUNTER 2019-01-19 23:56 | Emergency (ER) | payer MEDICAID ==
[2019-01-19 23:56] VITALS: BMI 27.8
[2019-01-20 01:00] VITALS: BP 128/83; PULSE 104; RESP 16; TEMP 98.9; O2SAT 98
--- NOTE | 2019-01-20 02:52 | ED PDOC ---
Lower Extremity Pain/Injury Time Seen by Provider: 01/20/19 00:49 Chief Complaint (Nursing): Lower Extremity Problem/Injury History Per: Patient History/Exam Limitations: no limitations Onset/Duration Of Symptoms: Days Current Symptoms Are (Timing): Still Present Additional Complaint(s): 33 year old F presenting with bilateral lower extremity swelling, redness, and pain x 2 days. States they hurt worst when she is at work or when she's walking. Denies injury, fever, chills. Past Medical History Reviewed: Historical Data, Nursing Documentation Vital Signs: Last Vital Signs Temp 98.9 F 01/20/19 00:58 Pulse 104 H 01/20/19 00:58 Resp 16 01/20/19 00:58 BP 128/83 01/20/19 00:58 Pulse Ox 98 01/20/19 00:58 - Medical History PMH: Anemia, Asthma, Chronic Pain (chronic abdominal pain ) Denies: Diabetes, Hepatitis, HIV, HTN, Chronic Kidney Disease, Seizures, Sexually Transmitted Disease - Surgical History Surgical History: Denies: Cholecystectomy - Family History Family History: States: Unknown Family Hx - Immunization History Hx Tetanus Toxoid Vaccination: Yes Hx Influenza Vaccination: Yes Hx Pneumococcal Vaccination: Yes - Home Medications Home Medications: Ambulatory Orders Medication Instructions Recorded Cephalexin [cephalexin] 500 mg PO BID 7 Days #14 cap 01/20/19 - Allergies Allergies/Adverse Reactions: Allergies Allergy/AdvReac Type Severity Reaction Status Date / Time peanut Allergy Severe ANAPHYLAXIS Verified 01/18/19 12:26 ibuprofen Allergy Intermediate ANAPHYLAXIS Verified 01/18/19 12:26 naproxen sodium [From Aleve] Allergy Intermediate ITCHING Verified 01/18/19 12:26 peach Allergy RASH Verified 01/18/19 12:26 prednisone Allergy ITCHING Verified 01/18/19 12:26 NSAIDS (Non-Steroidal AdvReac Intermediate NAUSEA Verified 01/18/19 12:26 Anti-Inflamma tussfed Allergy Mild RASH Uncoded 01/09/19 23:16 Review of Systems ROS Statement: Except As Marked, All Systems Reviewed And Found Negative Musculoskeletal: Positive for: Leg Pain Physical Exam - Reviewed Nursing Documentation Reviewed: Yes Vital Signs Reviewed: Yes - Physical Exam Appears: Positive for: Well, Non-toxic, No Acute Distress Head Exam: Positive for: ATRAUMATIC, NORMAL INSPECTION, NORMOCEPHALIC Eye Exam: Positive for: EOMI, Normal appearance, PERRL Extremity: Positive for: Swelling (Bilateral lower extremity swelling, symmetric with erythema; negative Veronica's sign) - ECG O2 Sat by Pulse Oximetry: 98 Pulse Ox Interpretation: Normal Medical Decision Making Medical Decision Makin33 year old F presenting with leg swelling, redness --Not concerned for DVT at this time --Possibly beginning of cellulitis --Will treat with Keflex --Advised patient to followup with podiatry clinic --Well appearing upon discharge Disposition - Clinical Impression Clinical Impression: Cellulitis - Patient ED Disposition Is Patient to be Admitted: No - Disposition Referrals: Podiatry Clinic [Outside] Disposition: Routine/Home Disposition Time: 02:53 Condition: GOOD Prescriptions: Cephalexin [cephalexin] 500 mg PO BID 7 Days #14 cap Instructions: Cellulitis (Skin Infection), Adult (DC)
== END 2019-01-20 03:15 | disposition home or self-care (01) ==
LOC: H.ER 23:56
DX: L03.119 Cellulitis of unspecified part of limb (principal); G89.29 Other chronic pain; Z88.6 Allergy status to analgesic agent

== ENCOUNTER 2019-03-23 02:31 | Emergency (ER) | payer MEDICAID ==
[2019-03-23 02:31] VITALS: BMI 27.8
[2019-03-23 02:59] VITALS: TEMP 98.2
[2019-03-23] MEDS ORDERED: Sodium Chloride 0.9% 1,000 ML IV STA (03:18)
[2019-03-23 03:40] LABS: BASO # 0.1 K/uL (0.0-0.2); BASO % 1.1 % (0.0-2.0); EOS # 0.1 K/uL (0.0-0.7); HEMOGLOBIN 12.1 g/dL (12.0-16.0); LYMPH # 2.6 K/uL (1.0-4.3); LYMPH % 43.8 % (20.0-40.0); MEAN CELL VOLUME 94.2 fl (81.0-99.0); MEAN CORPUSCULAR HEMOGLOBIN 31.9 pg (27.0-31.0); MEAN CORPUSCULAR HGB CONC 33.9 g/dL (33.0-37.0); MEAN PLATELET VOLUME 9.3 fl (7.2-11.7); MONO # 0.5 K/uL (0.0-0.8); MONO % 8.3 % (0.0-10.0); NEUT # 2.7 K/uL (1.8-7.0); NEUT % 44.8 % (50.0-75.0); NRBC % 0.1 % (0.0-0.0); RBC 3.8 Mil/uL (3.80-5.20); RED CELL DISTRIBUTION WIDTH 13.6 % (11.5-14.5)
[2019-03-23 03:42] LABS: SQUAMOUS EPITHIAL 3 /hpf (0-5); URINE BACTERIA RARE (<OCC); URINE BILIRUBIN NEGATIVE (NEGATIVE); URINE BLOOD NEGATIVE (NEGATIVE); URINE CLARITY SLIGHTY-CLOUDY (Clear); URINE COLOR YELLOW (YELLOW); URINE GLUCOSE (UA) NEG (NEGATIVE); URINE LEUKOCYTE ESTERASE NEG Leu/uL (Negative); URINE PROTEIN 30 mg/dL (NEGATIVE); URINE UROBILINOGEN 0.2-1.0 mg/dL (0.2-1.0)
[2019-03-23 03:50] LABS: ALB/GLOB RATIO 1.4 (1.0-2.1); ALBUMIN 3.8 g/dL (3.5-5.0); ALT/SGPT 29 U/L (9-52); AST/SGOT 21 U/L (14-36); BLOOD UREA NITROGEN 14 mg/dl (7-17); CALCIUM 8.8 mg/dL (8.4-10.2); GFR NON-AFRICAN AMERICAN > 60
[2019-03-23] MEDS ORDERED: Iohexol 300 100 ML IJ ONE (04:04)
[2019-03-23] MEDS ORDERED: Sodium Chloride 0.9% 50 ML IV ONE (04:04)
[2019-03-23 04:06] LABS: BARBITURATES, UR NEGATIVE (NEGATIVE); BENZODIAZEPINES, UR NEGATIVE (NEGATIVE); OPIATES, UR NEGATIVE (NEGATIVE); PHENCYCLIDINE, UR NEGATIVE (NEGATIVE)
--- NOTE | 2019-03-23 04:50 | ED PDOC ---
HPI: Abdomen Time Seen by Provider: 03/23/19 02:59 Chief Complaint (Nursing): Abdominal Pain Chief Complaint (Provider): Abdominal Pain History Per: Patient History/Exam Limitations: no limitations Onset/Duration Of Symptoms: Days Current Symptoms Are (Timing): Still Present Additional Complaint(s): 33 y/o female with a PMHx of chronic abdominal pain, endometriosis, gastritis and uterine fibroids presents to the ED for evaluation of abdominal pain for the pst five days. Patient states she is unsure if it is related to her fibroids or to bowels. Patient notes of having had inflammatory bowels in the past. Patient states current symptoms feel like her fibroids. Otherwise, patient denies vaginal bleeding, vaginal discharge, nausea, vomiting, diarrhea and constipat ion. PMD: Shaik Patel Past Medical History Reviewed: Historical Data, Nursing Documentation, Vital Signs Vital Signs: Last Vital Signs Temp 98.2 F 03/23/19 02:55 Pulse 79 03/23/19 02:55 Resp 18 03/23/19 02:55 BP 106/55 L 03/23/19 02:55 Pulse Ox 96 03/23/19 02:55 Primary Care Provider: Shaik Patel - Medical History PMH: Anemia, Asthma, Chronic Pain (chronic abdominal pain ) Denies: Diabetes, Hepatitis, HIV, HTN, Chronic Kidney Disease, Seizures, Sexually Transmitted Disease - Surgical History Surgical History: No Surg Hx Denies: Cholecystectomy - Family History Family History: States: Unknown Family Hx - Immunization History Hx Tetanus Toxoid Vaccination: Yes Hx Influenza Vaccination: Yes Hx Pneumococcal Vaccination: Yes - Home Medications Home Medications: Ambulatory Orders Medication Instructions Recorded Cephalexin [cephalexin] 500 mg PO BID 7 Days #14 cap 01/20/19 - Allergies Allergies/Adverse Reactions: Allergies Allergy/AdvReac Type Severity Reaction Status Date / Time peanut Allergy Severe ANAPHYLAXIS Verified 03/23/19 02:58 ibuprofen Allergy Intermediate ANAPHYLAXIS Verified 03/23/19 02:58 naproxen sodium [From Aleve] Allergy Intermediate ITCHING Verified 03/23/19 02:58 peach Allergy RASH Verified 03/23/19 02:58 prednisone Allergy ITCHING Verified 03/23/19 02:58 NSAIDS (Non-Steroidal AdvReac Intermediate NAUSEA Verified 03/23/19 02:58 Anti-Inflamma tussfed Allergy Mild RASH Uncoded 03/23/19 02:58 Review of Systems ROS Statement: Except As Marked, All Systems Reviewed And Found Negative Respiratory: Positive for: Shortness of Breath Gastrointestinal: Positive for: Abdominal Pain, Other Genitourinary Female: Negative for: Vaginal Discharge, Vaginal Bleeding Physical Exam - Reviewed Nursing Documentation Reviewed: Yes Vital Signs Reviewed: Yes - Physical Exam Appears: Positive for: Well, No Acute Distress. Negative for: Uncomfortable (patient appears comfortable) Head Exam: Positive for: ATRAUMATIC, NORMOCEPHALIC Skin: Positive for: Normal Color, Warm, Dry Eye Exam: Positive for: Normal appearance, EOMI, PERRL Neck: Positive for: Normal, Painless ROM Cardiovascular/Chest: Positive for: Regular Rate, Rhythm. Negative for: Murmur Gastrointestinal/Abdominal: Positive for: Normal Exam, Soft. Negative for: Tenderness, Guarding, Rebound Extremity: Positive for: Normal ROM. Negative for: Deformity Neurological/Psych: Positive for: Awake, Alert, Oriented. Negative for: Motor/Sensory Deficits - Laboratory Results Result Diagrams: 03/23/19 03:25 03/23/19 03:25 Lab Results: Total Bilirubin 0.6 mg/dl (0.2-1.3) 03/23/19 03:25 AST 21 U/L (14-36) 03/23/19 03:25 ALT 29 U/L (9-52) 03/23/19 03:25 Alkaline Phosphatase 43 U/L (38-126) 03/23/19 03:25 Total Protein 6.6 G/DL (6.3-8.2) 03/23/19 03:25 Albumin 3.8 g/dL (3.5-5.0) 03/23/19 03:25 Globulin 2.8 gm/dL (2.2-3.9) 03/23/19 03:25 Albumin/Globulin Ratio 1.4 (1.0-2.1) 03/23/19 03:25 Urine Color Yellow (YELLOW) 03/23/19 03:25 Urine Clarity Slighty-cloudy (Clear) 03/23/19 03:25 Urine pH 6.0 (5.0-8.0) 03/23/19 03:25 Ur Specific [place] 1.031 (1.003-1.030) H 03/23/19 03:25 Urine Protein 30 mg/dL (NEGATIVE) 03/23/19 03:25 Urine Glucose (UA) Neg mg/dL (NEGATIVE) 03/23/19 03:25 Urine Ketones Trace mg/dL (NEGATIVE) 03/23/19 03:25 Urine Blood Negative (NEGATIVE) 03/23/19 03:25 Urine Nitrate Negative (NEGATIVE) 03/23/19 03:25 Urine Bilirubin Negative (NEGATIVE) 03/23/19 03:25 Urine Urobilinogen 0.2-1.0 mg/dL (0.2-1.0) 03/23/19 03:25 Ur Leukocyte Esterase Neg Juan Ramon/uL (Negative) 03/23/19 03:25 Urine RBC (Auto) 3 /hpf (0-3) 03/23/19 03:25 Urine Microscopic WBC 1 /hpf (0-5) 03/23/19 03:25 Ur Squamous Epith Cells 3 /hpf (0-5) 03/23/19 03:25 Urine Bacteria Rare (<OCC) 03/23/19 03:25 - ECG O2 Sat by Pulse Oximetry: 96 (RA) Pulse Ox Interpretation: Normal Medical Decision Making Medical Decision Making: Time: 8 A/P: 33 y/o female presenting with an unspecified abdominal pain. Pain possibly related to chronic endometriosis or fibbroids. -- CT Abd/Pelvis IV Contrast ONLY -- CMP -- Urine Drug Screen -- Sodium Chloride IV 1000/mls -- Urinalysis -- US transvaginal EXAM: CT Abdomen and Pelvis with IV contrast CLINICAL HISTORY: Lower abd pain hx of pelvic surgery in past myomectomy TECHNIQUE: Axial computed tomography images of the abdomen and pelvis with intravenous contrast. 769.28 mGy-cm CONTRAST: With; omnmipaque 90ml COMPARISON: CT\SR - ABD PELVIS IV CONTRAST ONLY - 08/21/2018 01:34 AM EDT FINDINGS: LUNG BASES: The lung bases appear clear. No pleural effusions are seen. LIVER: Unremarkable. GALLBLADDER AND BILE DUCTS: The gallbladder appears within normal limits. No radioopaque gallstones are see n. No biliary ductal dilatation is evident. PANCREAS: Unremarkable. SPLEEN: Unremarkable. ADRENAL GLANDS: Unremarkable. KIDNEYS, URETERS, AND BLADDER: The kidneys appear within normal limits. There is no hydronephrosis or hydroureter. No urinary calculi are seen. STOMACH AND BOWEL: Thick walled fluid filled duodenum and loops of jejunum as well as ileum compatible with enteritis. Infectious and inflammatory etiologies are considered. Consider consultation with GI service. APPENDIX: No evidence of acute appendicitis on CT examination. PERITONEUM: No free fluid. No free air. LYMPH NODES: No lymphadenopathy is evident. REPRODUCTIVE: Uterus and ovaries are unremarkable. VASCULATURE: No evidence of abdominal aortic aneurysm. BONES: No aggressive appearing osseous lesion. No acute osseous pathology evident. IMPRESSION: Enteritis. Infectious and inflammatory etiologies are considered. Consider consultation with GI service. Electronically signed on March 23, 2019 4:33:47 AM EDT by: Sunny Enamorado M.D., M.B.A., Certified By [employer] Trained MRI and CT Specialist 645AM --Patient asleep, snoring in room --Enteritis non-acute finding, given chronicity of symptoms and no WBC count or fever, does not need antibiotics 700AM --Will endorse to Dr. Borges pending sono Scribe Attestation: Documented by Dimitry Sullivan, acting as a scribe Ermias Pate MD. Provider Scribe Attestation: All medical record entries made by the Scribe were at my direction and personally dictated by me. I have reviewed the chart and agree that the record accurately reflects my personal performance of the history, physical exam, medical decision making, and the department course for this patient. I have also personally directed, reviewed, and agree with the discharge instructions and disposition. Disposition - Clinical Impression Clinical Impression: Abdominal pain - Patient ED Disposition Is Patient to be Admitted: Transfer of Care - Disposition Disposition: Transfer of Care Disposition Time: 07:00 Condition: STABLE Forms: [employer] (Yakut) Patient Signed Over To: Steffen Borges Handoff Comments: pending sono and re-eval
--- NOTE | 2019-03-23 07:31 | ED PDOC ---
- Laboratory Results Result Diagrams: 03/23/19 03:25 03/23/19 03:25 Lab Results: Total Bilirubin 0.6 mg/dl (0.2-1.3) 03/23/19 03:25 AST 21 U/L (14-36) 03/23/19 03:25 ALT 29 U/L (9-52) 03/23/19 03:25 Alkaline Phosphatase 43 U/L (38-126) 03/23/19 03:25 Total Protein 6.6 G/DL (6.3-8.2) 03/23/19 03:25 Albumin 3.8 g/dL (3.5-5.0) 03/23/19 03:25 Globulin 2.8 gm/dL (2.2-3.9) 03/23/19 03:25 Albumin/Globulin Ratio 1.4 (1.0-2.1) 03/23/19 03:25 Urine Color Yellow (YELLOW) 03/23/19 03:25 Urine Clarity Slighty-cloudy (Clear) 03/23/19 03:25 Urine pH 6.0 (5.0-8.0) 03/23/19 03:25 Ur Specific Michael 1.031 (1.003-1.030) H 03/23/19 03:25 Urine Protein 30 mg/dL (NEGATIVE) 03/23/19 03:25 Urine Glucose (UA) Neg mg/dL (NEGATIVE) 03/23/19 03:25 Urine Ketones Trace mg/dL (NEGATIVE) 03/23/19 03:25 Urine Blood Negative (NEGATIVE) 03/23/19 03:25 Urine Nitrate Negative (NEGATIVE) 03/23/19 03:25 Urine Bilirubin Negative (NEGATIVE) 03/23/19 03:25 Urine Urobilinogen 0.2-1.0 mg/dL (0.2-1.0) 03/23/19 03:25 Ur Leukocyte Esterase Neg Juan Ramon/uL (Negative) 03/23/19 03:25 Urine RBC (Auto) 3 /hpf (0-3) 03/23/19 03:25 Urine Microscopic WBC 1 /hpf (0-5) 03/23/19 03:25 Ur Squamous Epith Cells 3 /hpf (0-5) 03/23/19 03:25 Urine Bacteria Rare (<OCC) 03/23/19 03:25 - ECG O2 Sat by Pulse Oximetry: 96 (RA) Pulse Ox Interpretation: Normal - CT Scan/US us Other Rad Studies (CT/US): Radiology Report Reviewed Other Rad Interpretation: no acute - Progress ED Course And Treament: 900: Refused US. Demanding pain meds. States morphine and oxy work. Will give morphine x1. Pt. aware that we have a strict policy for pain control and is not indicated. We will give a 1x dose. 1214: Now pt. wants valium. Intially refused and stated she didn't want to be a guinea pig. Will dc with valium and ppi. No findings on ct and us. AAOx3. Tolerated PO. Ambulated with no issues. In no pain currently. 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 Last 03/11/19. Medical Decision Making Medical Decision Makin:00 33 year old female presents to the ED with vague pain. Patient care endorsed from Dr. Pate to Dr. Borges pending US results and ED disposition. Her CT scan demonstrates enteritis. Scribe Attestation: Documented by Rosana Lizama, acting as a scribe for Steffen Borges MD Provider Scribe Attestation: All medical record entries made by the Scribe were at my direction and personally dictated by me. I have reviewed the chart and agree that the record accurately reflects my personal performance of the history, physical exam, medical decision making, and the department course for this patient. I have also personally directed, reviewed, and agree with the discharge instructions and disposition. Disposition - Clinical Impression Clinical Impression: Abdominal pain - POA Present On Arrival: None - Disposition Referrals: Lam Perez MD [Staff Provider] - 03/24/19 [facility] [Outside] - 03/24/19 Disposition: Routine/Home Disposition Time: 12:16 Condition: STABLE Additional Instructions: Return if not better in 3 days. Prescriptions: Diazepam [Valium] 2 mg PO BID PRN #6 tab PRN Reason: Muscle Spasm Pantoprazole Sodium [Protonix] 40 mg PO DAILY PRN 5 Days ect PRN Reason: Pain, Moderate (4-7) Instructions: Stomach Ache and Stomach Upset Forms: [facility] ED School/Work Excuse
[2019-03-23] MEDS ORDERED: Morphine 4 MG/ML VIAL ONE (09:17)
[2019-03-23] MEDS ORDERED: Morphine 4 MG/ML VIAL IV ONE (10:00)
--- NOTE | 2019-03-23 10:13 | CT ---
Date of service: 03/23/2019 PROCEDURE: CT Abdomen and Pelvis with contrast HISTORY: lower abdominal pain COMPARISON: Chest CT without contrast and abdomen pelvis CT with contrast, both from 08/21/2018. TECHNIQUE: Following the intravenous administration of iodinated contrast material, a CT examination of the abdomen and pelvis was performed from the domes of the diaphragms to the symphysis pubis with reformatted datasets provided in axial, sagittal and coronal planes. Oral contrast was not administered as per referring physician request. Contrast dose: Omnipaque 300, 90 cc Radiation dose: Total exam DLP = 769.28 mGy-cm. This CT exam was performed using one or more of the following dose reduction techniques: Automated exposure control, adjustment of the mA and/or kV according to patient size, and/or use of iterative reconstruction technique. FINDINGS: LOWER THORAX: Unremarkable. LIVER: Unremarkable. No gross lesion or ductal dilatation. GALLBLADDER AND BILE DUCTS: Gallbladder is contracted. No radiodense cholelithiasis. No pericholecystic fluid collection. PANCREAS: Unremarkable. No gross lesion or ductal dilatation. SPLEEN: Unremarkable. ADRENALS: Unremarkable. No mass. KIDNEYS AND URETERS: Unremarkable. No hydronephrosis. No solid mass. VASCULATURE: Unremarkable. No aortic aneurysm. No aortic atherosclerotic calcification or mural plaque present. BOWEL: The stomach is distended with retained food. No bowel obstruction. Mild fecal loading is seen at the right hemicolon and hepatic flexure is otherwise minimal with limited amount of gas distending various mid and distal large-bowel loops. APPENDIX: Normal appendix. PERITONEUM: Unremarkable. No free fluid. No free air. LYMPH NODES: Unremarkable. No enlarged lymph nodes. BLADDER: Decompressed and otherwise unremarkable appearing. REPRODUCTIVE: Unremarkable. BONES: No acute fracture. OTHER FINDINGS: None. IMPRESSION: No definitive acute abdominal or pelvic findings at this time. Discordant preliminary report from [facility] (enteritis), 03/23/2019, 4:33 a.m..
--- NOTE | 2019-03-23 11:56 | US ---
Date of service: 03/23/2019 HISTORY: lower abd pain, hx of fibroids COMPARISON: None available. TECHNIQUE: Transabdominal pelvic ultrasound was performed with longitudinal and transverse images submitted for interpretation. FINDINGS: UTERUS: Measures 8.6 x 5.1 x 3.7 cm. Mildly enlarged, anteverted no fibroid or other mass lesion seen. ENDOMETRIUM: Measures 8.4 mm in diameter. Unremarkable. CERVIX: No cervical abnormality identified. RIGHT OVARY: Measures 2.3 x 2.4 x 1.4 cm. No solid mass. Normal flow. LEFT OVARY: Measures 2.1 x 1.7 x 1.9 cm. No solid mass. Normal flow. FREE FLUID: No significant free fluid noted. OTHER FINDINGS: None. IMPRESSION: Unremarkable pelvic ultrasound.
[2019-03-23 12:30] VITALS: BP 128/76; PULSE 65; RESP 16; O2SAT 100
== END 2019-03-23 12:24 | disposition home or self-care (01) ==
LOC: H.ER 02:31
DX: R10.9 Unspecified abdominal pain (principal); G89.29 Other chronic pain; J45.909 Unspecified asthma, uncomplicated; Z88.6 Allergy status to analgesic agent
CPT/HCPCS: 74177; 76856; 80053; 80324; 80345; 80346; 80349; 80353; 80358; 80361; 81003; 81025; 83992; 85025; 96361; 96374; 99285; J2270; J7030; Q9967

== ENCOUNTER 2019-04-04 02:19 | Emergency (ER) | payer MEDICAID ==
[2019-04-04 02:19] VITALS: BMI 27.8
--- NOTE | 2019-04-04 03:26 | ED PDOC ---
HPI: General Adult Time Seen by Provider: 04/04/19 02:52 Chief Complaint (Nursing): GI Problem Chief Complaint (Provider): GI Problem History Per: Patient History/Exam Limitations: no limitations Onset/Duration Of Symptoms: Other (x2 weeks) Current Symptoms Are (Timing): Still Present Additional Complaint(s): Patient is a 33 y/o female with a PMHx of anemia, asthma, and chronic abdominal pain who presents to the ED for evaluation of generalized weakness and chills fo r the past two weeks. Furthermore, patient also complains of intermittent dark stools, fatigue, and dizziness. Patient denies fever and abdominal pain. PCP: None Past Medical History Reviewed: Historical Data, Nursing Documentation, Vital Signs Vital Signs: Last Vital Signs Temp 98.9 F 04/04/19 02:34 Pulse 82 04/04/19 02:34 Resp 18 04/04/19 02:34 BP 120/64 04/04/19 02:34 Pulse Ox 98 04/04/19 02:34 Primary Care Provider: Procedure,Nonphys - Medical History PMH: Anemia, Asthma, Chronic Pain (chronic abdominal pain ) Denies: Diabetes, Hepatitis, HIV, HTN, Chronic Kidney Disease, Seizures, Sexually Transmitted Disease - Surgical History Surgical History: No Surg Hx Denies: Cholecystectomy - Family History Family History: States: Unknown Family Hx - Social History Drugs: Cannabis - Immunization History Hx Tetanus Toxoid Vaccination: Yes Hx Influenza Vaccination: Yes Hx Pneumococcal Vaccination: Yes - Home Medications Home Medications: Ambulatory Orders Medication Instructions Recorded No Known Home Med 03/27/19 - Allergies Allergies/Adverse Reactions: Allergies Allergy/AdvReac Type Severity Reaction Status Date / Time peanut Allergy Severe ANAPHYLAXIS Verified 03/27/19 02:10 ibuprofen Allergy Intermediate ANAPHYLAXIS Verified 03/27/19 02:10 naproxen sodium [From Aleve] Allergy Intermediate ITCHING Verified 03/27/19 02:10 peach Allergy RASH Verified 03/27/19 02:10 prednisone Allergy ITCHING Verified 03/27/19 02:10 NSAIDS (Non-Steroidal AdvReac Intermediate NAUSEA Verified 03/27/19 02:10 Anti-Inflamma tussfed Allergy Mild RASH Uncoded 03/27/19 02:10 Review of Systems ROS Statement: Except As Marked, All Systems Reviewed And Found Negative Constitutional: Positive for: Chills, Weakness (generalized). Negative for: Fever Gastrointestinal: Positive for: Other (dark stools). Negative for: Abdominal Pain Neurological: Positive for: Dizziness, Other (Fatigue) Physical Exam - Reviewed Nursing Documentation Reviewed: Yes Vital Signs Reviewed: Yes - Physical Exam Appears: Positive for: No Acute Distress Head Exam: Positive for: ATRAUMATIC, NORMAL INSPECTION, NORMOCEPHALIC Skin: Positive for: Normal Color, Warm, DRY Eye Exam: Positive for: EOMI, Normal appearance, PERRL Neck: Positive for: Normal, Painless ROM, Supple Cardiovascular/Chest: Positive for: Regular Rate, Rhythm. Negative for: Murmur Respiratory: Positive for: Normal Breath Sounds. Negative for: Respiratory Distress Gastrointestinal/Abdominal: Positive for: Normal Exam, Soft. Negative for: Tenderness Back: Positive for: Normal Inspection. Negative for: L CVA Tenderness, R CVA Tenderness Rectal: Positive for: Deferred Extremity: Positive for: Normal ROM. Negative for: Pedal Edema, Deformity Neurological/Psych: Positive for: Alert, Oriented (x3) - Laboratory Results Result Diagrams: 04/04/19 04:00 04/04/19 04:00 - ECG O2 Sat by Pulse Oximetry: 98 (RA) Pulse Ox Interpretation: Normal Medical Decision Making Medical Decision Making: Time: 0331 Impression: Generalized Weakness and Dark Stools DDx includes but not limited to anemia and GI bleed. Plan: EKG CMP Drug Screen, Urine Lipase Urine Urine Dipstick CBC PTT Prothrombin Time UA Time: 0455 Diagnosis dark stools and cannabis abuse. Labs unremarkable. Symptoms have improved. Patient stable for discharge. Scribe Attestation: Documented by Atilio Clement, acting as a scribe for Edda Redding MD. Provider Scribe Attestation: All medical record entries made by the Scribe were at my direction and personally dictated by me. I have reviewed the chart and agree that the record accurately reflects my personal performance of the history, physical exam, medical decision making, and the department course for this patient. I have also personally directed, reviewed, and agree with the discharge instructions and disposition. Disposition - Clinical Impression Clinical Impression: Cannabis abuse, Dark stools - Patient ED Disposition Is Patient to be Admitted: No Doctor Will See Patient In The: Office Counseled Patient/Family Regarding: Studies Performed, Diagnosis, Need For Followup - Disposition Referrals: Shaik Patel MD [Primary Care Provider] - Disposition: Routine/Home Disposition Time: 04:58 Condition: GOOD Additional Instructions: JOSEFA WILLIAMSON, thank you for letting us take care of you today. Your provider was Edda Redding MD and you were treated for GI PROBLEM. The [facility] medical care you received today was directed at your acute symptoms. If you were prescribed any medication, please fill it and take as directed. It may take several days for your symptoms to resolve. Return to the Emergency Department if your symptoms worsen, do not improve, or if you have any other problems. Please contact your doctor or call one of the physicians/clinics you have been referred to that are listed on the Patient Visit Information form that is included in your discharge packet. Bring any paperwork you were given at discharge with you along with any medications you are taking to your follow up visit. Our treatment cannot replace ongoing medical care by a primary care rodolfo duran outside of the emergency department. Thank you for allowing the [facility] team to be part of your care today. If you had an X-Ray or CT scan: A Radiologist will review the ED reading if any change in treatment is needed we will contact you. If you had a blood, urine, or wound culture: It will take several days for the results, if any change in treatment is needed we will contact you. Instructions: Marijuana Use and Addiction, Bloody Stools, Adult (DC) Forms: [employer] (Azerbaijani)
[2019-04-04 04:20] LABS: SQUAMOUS EPITHIAL 2 /hpf (0-5); URINE AMORPHOUS SEDIMENT OCC /ul (<OCC); URINE BACTERIA OCC (<OCC); URINE BILIRUBIN NEGATIVE (NEGATIVE); URINE BLOOD NEGATIVE (NEGATIVE); URINE CLARITY CLOUDY (Clear); URINE COLOR YELLOW (YELLOW); URINE GLUCOSE (UA) NEG (NEGATIVE); URINE LEUKOCYTE ESTERASE NEG Leu/uL (Negative); URINE PROTEIN NEGATIVE (NEGATIVE); URINE UROBILINOGEN 0.2-1.0 mg/dL (0.2-1.0)
[2019-04-04 04:23] LABS: PROTHROMBIN TIME 11.3 Seconds (9.8-13.1)
[2019-04-04 04:26] LABS: PARTIAL THROMBOPLASTIN TIME 34.1 Seconds (25.6-37.1)
[2019-04-04 04:31] LABS: BASO # 0.1 K/uL (0.0-0.2); BASO % 0.7 % (0.0-2.0); EOS # 0.1 K/uL (0.0-0.7); EOS % 1.3 % (0.0-4.0); HEMOGLOBIN 12.5 g/dL (12.0-16.0); LYMPH # 2.3 K/uL (1.0-4.3); LYMPH % 28.6 % (20.0-40.0); MEAN CELL VOLUME 94.8 fl (81.0-99.0); MEAN CORPUSCULAR HEMOGLOBIN 32.3 pg (27.0-31.0); MEAN CORPUSCULAR HGB CONC 34.1 g/dL (33.0-37.0); MEAN PLATELET VOLUME 9.6 fl (7.2-11.7); MONO # 0.6 K/uL (0.0-0.8); MONO % 7.8 % (0.0-10.0); NEUT # 4.9 K/uL (1.8-7.0); NEUT % 61.6 % (50.0-75.0); RBC 3.86 Mil/uL (3.80-5.20); RED CELL DISTRIBUTION WIDTH 13.9 % (11.5-14.5); WHITE BLOOD COUNT 7.9 K/uL (4.8-10.8)
[2019-04-04 04:46] LABS: ALB/GLOB RATIO 1.4 (1.0-2.1); ALBUMIN 3.7 g/dL (3.5-5.0); ALT/SGPT 24 U/L (9-52); AST/SGOT 29 U/L (14-36); BARBITURATES, UR NEGATIVE (NEGATIVE); BENZODIAZEPINES, UR NEGATIVE (NEGATIVE); BLOOD UREA NITROGEN 14 mg/dl (7-17); CALCIUM 8.8 mg/dL (8.4-10.2); GFR NON-AFRICAN AMERICAN > 60; LIPASE 48 U/L (23-300); OPIATES, UR NEGATIVE (NEGATIVE); PHENCYCLIDINE, UR NEGATIVE (NEGATIVE)
[2019-04-04 06:21] VITALS: BP 134/77; PULSE 78; RESP 15; TEMP 98.2
--- NOTE | 2019-04-04 11:48 | CARD ---
APPROVED REPORT Date of service: 04/04/2019 EKG Measurement Heart [id number] <Conclusion> Normal sinus rhythm Normal ECG
[2019-04-06 09:48] VITALS: O2SAT 98
== END 2019-04-04 06:21 | disposition home or self-care (01) ==
LOC: H.ER 02:19
DX: F12.10 Cannabis abuse, uncomplicated (principal); K92.1 Melena; Z88.6 Allergy status to analgesic agent